=== PATIENT | male | born 1955 | race Two or more races ===

== ENCOUNTER 2021-02-06 15:12 | Emergency (ER) | payer OTHER, SELFPAY ==
--- NOTE | 2021-02-06 15:21 | ED.URI ---
HPI - URI/Sore Throat General Chief Complaint: Upper Respiratory Infection Stated Complaint: congestion sore throat cough Time Seen by Provider: 02/06/21 15:30 Source: patient, RN notes reviewed and police Mode of arrival: ambulatory Limitations: no limitations History of Present Illness HPI Narrative: Adiel is a 65-year-old male patient who ambulated into the [facility]. Patient has a 2-day history of nasal congestion and increased mucus. Patient is from [place] and just flew here for his mother's . Patient has been taking NyQuil at home. MD elicited complaint: rhinorrhea Related Data Home Medications Medication Instructions Recorded Confirmed amlodipine 5 mg PO DAILY 02/06/21 02/06/21 Allergies Allergy/AdvReac Type Severity Reaction Status Date / Time No Known Allergies Allergy Verified 02/06/21 15:31 Review of Systems Review of Systems: CONSTITUTIONAL: Denies body aches, fever, chills, or sweats. EYES: Denies visual changes, redness, or discharge. ENT: + rhinorrhea,+ congestion,denies sore throat, or otalgia. CARDIOVASCULAR: Denies chest pain, palpitations, or edema. RESPIRATORY: Denies cough or dyspnea. GASTROINTESTINAL: Denies abdominal pain, nausea, vomiting, or diarrhea. GENITOURINARY: Denies dysuria or hematuria. SKIN: Denies rash, itching, or wounds. MUSCULOSKELETAL: Denies back pain, joint pain, or myalgia. NEUROLOGIC: Denies headache, numbness, tingling, or weakness. PSYCH: Denies depression or anxiety. All systems reviewed & are unremarkable except as noted in HPI and below PMFSH Comments At time of signature, I have reviewed and agree with nursing past medical, surgical, social and family history unless otherwise noted. Please see nursing chart for further information. There is no relevant family history pertinent to the presenting complaint Exam Narrative: GENERAL: Well-appearing, well-nourished, and in no acute distress. HEAD: Normocephalic, atraumatic. EYES: EOMI. No redness or drainage. Conjunctivae normal. ENT: Mucous membranes pink and moist. Nasal membranes erythemic with clear rhinorrhea bilateral tympanic membranes are dull . Throat normal. Uvula midline. NECK: Normal AROM. Supple. No lymphadenopathy. CHEST: No respiratory distress. Clear to auscultation. MUSCULOSKELETAL: No bony tenderness. EXTREMITIES: Normal range of motion. No edema. SKIN: Warm, dry, no rash. Capillary refill normal. Normal skin turgor. NEURO: No focal deficits. Alert and oriented x3. Gait steady. PSYCH: Normal affect. No signs of depression or anxiety. Course Vital Signs Vital signs: Vital Signs Temperature 36.7 C 02/06/21 15:22 Pulse Rate 99 02/06/21 15:22 Respiratory Rate 14 02/06/21 15:22 Blood Pressure 159/86 H 02/06/21 15:22 Pulse Oximetry 98 02/06/21 15:22 Temperature 36.7 C 02/06/21 15:22 Pulse Rate 99 02/06/21 15:22 Respiratory Rate 14 02/06/21 15:22 Blood Pressure 159/86 H 02/06/21 15:22 Pulse Oximetry 98 02/06/21 15:22 Reviewed. Pt has been instructed to follow up with his PCP regarding his elevated blood pressure today. MDM - URI/Sore Throat MDM Narrative Medical decision making narrative: Patient's rapid Covid is negative. Patient has nasal congestion and sinus drainage only. Patient will be diagnosed as nasopharyngitis. Patient will be treated with [id number] DayQuil/NyQuil. And a daily allergy medicine Differential Diagnosis Differential diagnosis: Likely upper respiratory infection, pharyngitis and other Medical Records Attestation: I reviewed the patient's medical records. Critical Care Time Critical Care Time Critical Care Time: No Discharge Plan Discharge Clinical Impression: Nasopharyngitis Patient Disposition: Home, Self-Care Condition: Stable Instructions: Antibiotic Form, Cold Symptoms (ED) Additional Instructions: May use [id number] cough and cold medicine such as DayQuil and/or NyQuil. Ta
[2021-02-06 15:22] VITALS: BP 159/86; PULSE 99; RESP 14; TEMP 36.7; O2SAT 98
== END 2021-02-06 15:50 | disposition home or self-care (01) ==
PROVIDERS: Emergency Provider Nurse Practitioner Family
DX: J00 Acute nasopharyngitis [common cold] (principal); Z20.822 Contact with and (suspected) exposure to COVID-19; I10 Essential (primary) hypertension
CPT/HCPCS: 87426; 99213; C9803; G0463